=== PATIENT | female | born 1980 | race Caucasian/White ===

== ENCOUNTER 2019-03-15 23:17 | Emergency (ER) | payer OTHER ==
[2019-03-15 23:30] VITALS: BP 136/88
== END 2019-03-16 00:21 | disposition left against medical advice (07) ==
LOC: ER 23:17
DX: Z53.21 Procedure and treatment not carried out due to patient leaving prior to being seen by health care provider (principal)

== ENCOUNTER 2019-05-24 17:46 | Emergency (ER) | payer OTHER ==
[2019-05-24 17:54] VITALS: BP 131/86
--- NOTE | 2019-05-24 18:15 | ER Document Report ---
Addendum entered and electronically signed by NATE BLACKBURN NP 05/24/19 19:28: Course - Re-evaluation Re-evalutation: 05/24/19 19:25 Patient states that she is wanting to leave and no longer wants to stay at this time. Patient was upset initially that they were trying to stick her for an IV and were having to fish for her vein. Patient was advised initially that another nurse would attempt to get an IV who is experienced and very successful with IV attempts. Patient initially was agreeable to staying. Patient was moved from a triage room and then wanted to leave AGAINST MEDICAL ADVICE. The patient has decided not to proceed with further recommended testing or treatment to determine the cause of her symptoms. The risk and alternatives to the recommendation were discussed the patient voiced understanding. The patient appears clinically to have the capacity to make this decision. The patient was instructed that they could return to the ER at any time to complete the testing or treatment. Differential or suspected diagnoses based on medical screening exam: Sepsis, endocarditis, Picc line infection. The patient is aware of the concerning diagnoses and acknowledges understanding of the reasons for the following recommendations: The following recommendations/services were offered and refused: labs, ivf, iv antibiotics, imaging studies believe The following risks were explained: , permanent disability, loss of function Clinical impression: Patient is competent to make decisions regarding the medical that is being offered. - Vital Signs Vital signs: Temp Pulse Resp BP Pulse Ox 98.9 F 84 18 131/86 H 100 05/24/19 17:53 05/24/19 17:53 05/24/19 17:53 05/24/19 17:53 05/24/19 17:53 Discharge - Discharge Clinical Impression: Weak, Positive culture finding Disposition: AGAINST MEDICAL ADVICE Referrals: SURESH CURTIS MD, PHD [Primary Care Provider] - Follow up as needed Original Note: ED Medical Screen (RME) - General Chief Complaint: Abnormal Lab Results Stated Complaint: POSSIBLE STAPH INFECTION Time Seen by Provider: 05/24/19 18:08 Primary Care Provider: SURESH CURTIS MD, PHD [Primary Care Provider] - Follow up as needed Mode of Arrival: Ambulatory Information source: Patient Notes: Patient presents after having labs performed 4 days ago on outpatient basis. Patient is currently being treated for stage IV gastric cancer with meds. Patient was advised that she has a staph infection in her PICC line and need to come here for treatment. Patient states she has been running fevers off and on and last took Tylenol around 2 PM today. Patient reports nausea and vomiting 2 days ago but none since then. Patient complains of generalized weakness. I have greeted and performed a rapid initial assessment of this patient. A comprehensive ED assessment and evaluation of the patient, analysis of test results and completion of the medical decision making process will be conducted by additional ED providers. TRAVEL OUTSIDE OF THE [place] IN LAST 30 DAYS: No - Related Data Allergies/Adverse Reactions: Penicillins Adverse Reaction (Severe, Verified 09/02/16 00:35) Pruritis Past Medical History - Social History Frequency of alcohol use: None Drug Abuse: None Renal/ Medical History: Denies: Hx Peritoneal Dialysis Past Surgical History: Reports: Hx Abdominal Surgery - partial gastrectomy x2, Hx Tonsillectomy, Hx Tubal Ligation - Immunizations Immunizations up to date: Yes Hx Diphtheria, Pertussis, Tetanus Vaccination: Yes Physical Exam - Vital signs Vitals: Temp Pulse Resp BP Pulse Ox 98.9 F 84 18 131/86 H 100 05/24/19 17:53 05/24/19 17:53 05/24/19 17:53 05/24/19 17:53 05/24/19 17:53 - General General appearance: Alert Notes: Cachectic, appears chronically ill Course - Vital Signs Vital signs: Temp Pulse Resp BP Pulse Ox 98.9 F 84 18 131/86 H 100 05/24/19 17:53 05/24/19 17:53 05/24/19 17:53 05/24/19 17:53 05/24/19 17:53 Doctor's Discharge - Discharge Referrals: SURESH CURTIS MD, PHD [Primary Care Provider] - Follow up as needed
--- NOTE | 2019-05-24 18:33 | RADIOLOGY REPORT (SQ) ---
EXAM DESCRIPTION: CHEST SINGLE VIEW COMPLETED DATE/TIME: 05/24/2019 6:25 pm REASON FOR STUDY: cough, hx ca with mets, Picc line infection COMPARISON: None. EXAM PARAMETERS: NUMBER OF VIEWS: One view. TECHNIQUE: Single frontal radiographic view of the chest acquired. RADIATION DOSE: NA LIMITATIONS: None. FINDINGS: LUNGS AND PLEURA: No opacities, masses or pneumothorax. No pleural effusion. MEDIASTINUM AND HILAR STRUCTURES: No masses. Contour normal. HEART AND VASCULAR STRUCTURES: Heart normal in size. Normal vasculature. BONES: No acute findings. HARDWARE: Left upper extremity PICC terminates in the region of the superior vena cava. Left upper q uadrant surgical changes to include clips and chain sutures. OTHER: No other significant finding. IMPRESSION: NO ACUTE RADIOGRAPHIC FINDING IN THE CHEST. TECHNICAL DOCUMENTATION: JOB ID: [id number] [employer]- All Rights Reserved Reading location - IP/workstation name: [email or web address]
== END 2019-05-24 19:38 | disposition left against medical advice (07) ==
LOC: ER 17:46
DX: R53.1 Weakness (principal); C16.9 Malignant neoplasm of stomach, unspecified; R50.81 Fever presenting with conditions classified elsewhere; Z88.0 Allergy status to penicillin
CPT/HCPCS: 71045; 99283